=== PATIENT | female | born 1935 | race Caucasian/White ===

== ENCOUNTER → 2017-08-06 | Outpatient (CLI) | payer OTHER ==
[~2017-08-06] MED LIST: CALC500C70 PO; CHOL20005 PO; DILTIAZEM HCL PO; DIPH25CA37 PO; ERGO1CAP35 PO; FOLI5CAP PO; IBAN150T PO; LORA1TAB13 PO; METH2.5T PO; MULT-513 PO; OMEG10007 PO; RANI150T3 PO; TRAM-453 PO
--- NOTE | 2017-08-06 11:19 | DIAGNOSTIC IMAGING REPORT ---
(RENAL)RETROPERITON COMP HISTORY: 81 years-old Female R33.9 Urinary retention acute urinary retention COMPARISON: None available TECHNIQUE: Multiple real-time sonogram images of the kidneys and urinary bladder were obtained assessing grayscale appearance and color flow FINDINGS: The right kidney measures 10.2 x 5.8 x 5.0 cm demonstrates mild dilation of the renal pelvis and central calyces. No obstructing stone or lesions identified. There is increased echogenicity of the renal parenchyma. Left kidney measures 10.1 x 5.9 x 6.5 cm and also demonstrates mild dilation of the renal pelvis and central calyces. 1.5 cm hypoechoic lesion of the superior pole left kidney suggests renal cyst. Increased echogenicity of the left renal parenchyma. Bilateral ureteral jets are noted. Post void residual of 237 mL. Urinary bladder is otherwise unremarkable with mild dependent urinary bladder debris. IMPRESSION: 1. Mild bilateral hydronephrosis without obstructing stone or lesion identified. 2. Increased echogenicity of the bilateral kidneys suggests chronic medical renal disease. 3. Post void residual of 237 mL. Mild dependent debris is noted within the urinary bladder lumen. The above report was generated using voice recognition software. It may contain grammatical, syntax or spelling errors. Electronically signed by: Ryan Harris M.D. 08/06/2017 11:17 AM Dictated Date/Time: 08/06/2017 11:15 AM
== END | disposition home or self-care (01) ==
LOC: C.ULTR 09:58
PROVIDERS: ATTEND Urology
DX: R33.9 Retention of urine, unspecified (principal); N13.30 Unspecified hydronephrosis